=== PATIENT | female | born 1940 | race Caucasian/White ===

== ENCOUNTER → 2017-11-08 09:49 | Outpatient (CLI) | payer MEDICARE, SELFPAY ==
--- NOTE | 2017-11-08 09:54 | MM_ITS ---
MM Dig screening mamm BI w/CAD CAD Screening ORDERING PHYSICIAN : Bernarda Cobb PATIENT AGE: 77 years GENDER: Female COMPARISON: Previous mammograms: November 2010.. And December 2011 INDICATION: Routine screening 77-year-old. No hormones. No new complaints. Nonobstructive. Family history TECHNIQUE: Standard CC and MLO images were obtained. R2 CAD reviewed. FINDINGS: Moderate density breast RIGHT BREAST:Stable appearance LEFT BREAST:No significant new findings . Stable appearance of slight nodularity towards upper outer quadrant, actually less evident today than on previous studies. IMPRESSION: Stable bilateral mammogram with no dominant mass or suspicious calcification BI-RADS Category: 2 Benign Finding(s) RECOMMENDED FOLLOW-UP: 1YR - 1 YEAR FOLLOW-UP (A letter has been sent to the patient regarding results of the study.)
== END ==
PROVIDERS: Family Provider Nurse Practitioner Family; PCP Nurse Practitioner Family; Visit Provider Nurse Practitioner Family
DX: Z12.31 Encounter for screening mammogram for malignant neoplasm of breast (principal)
CPT/HCPCS: 77067

== ENCOUNTER → 2018-03-30 08:53 | Outpatient (CLI) | payer MEDICARE, SELFPAY ==
[2018-03-30 10:47] LABS: Alanine Aminotransferase 23 U/L (12-78); Albumin Level 3.8 gm/dL (3.4-5.0); Albumin/Globulin Ratio 1.1 (1.1-1.8); Alkaline Phosphatase 70 U/L (46-116); Anion Gap 12.4 mEq/L (5-15); Aspartate Amino Transferase 17 U/L (15-37); Bilirubin,Total 0.5 mg/dL (0.2-1.0); Blood Urea Nitrogen 20 mg/dL (7-18); Calcium 9.4 mg/dL (8.5-10.1); Carbon Dioxide 29 mmol/L (21.0-32.0); Chloride 106 mmol/L (98-107); Cholesterol 219 mg/dL (140-200); Creatinine,Serum 0.93 mg/dL (0.55-1.02); Estimated Glomerular Filt Rate 58 ml/min (>60); GFR (African American) 71 ML/MIN (>60); Globulin 3.4 gm/dl (1.3-3.2); Glucose 88 mg/dL (74-106); HDL Cholesterol 55 mg/dL (29-89); LDL Cholesterol 146 mg/dL (0-130); Potassium 4.4 mmoL/L (3.5-5.1); Sodium 143 mmol/L (136-145); Total Protein,Serum 7.2 gm/dL (6.4-8.2); Triglycerides 90 mg/dL (30-200); VLDL Cholesterol 18 mg/dL (0-40)
== END ==
PROVIDERS: Visit Provider Nurse Practitioner Family
DX: E78.2 Mixed hyperlipidemia (principal)
CPT/HCPCS: 36415; 80053; 80061

== ENCOUNTER → 2021-03-08 13:20 | Outpatient (CLI) | payer MEDICARE, SELFPAY ==
[2021-03-08 13:54] LABS: Basophils % 0.9 % (0.1-2.0); Eosinophils % 0.6 % (0.1-12.0); Hematocrit 38.5 % (37.0-47.0); Hemoglobin 12.9 g/dL (12.2-16.2); Lymphocytes # 1.7 K/mm3 (0.7-4.5); Lymphocytes % 38.1 % (10-50); Mean Corpuscular HGB Conc 33.5 g/dL (31.8-35.4); Mean Corpuscular Hemoglobin 29.8 pg (27.0-31.2); Mean Corpuscular Volume 89.1 fl (81-99); Mean Platelet Volume 9.1 fl (7.4-10.4); Monocytes # 0.2 K/mm3 (0.1-1.0); Monocytes % 4.7 % (1.7-9.3); Neutrophils # 2.4 K/mm3 (1.8-7.8); Neutrophils % 55.6 % (37.0-80.0); Platelet Count 231 K/mm3 (142-424); Red Blood Count 4.33 M/mm3 (4.20-5.40); Red Cell Distribution Width 16.8 % (11.5-17.5); White Blood Count 4.3 K/mm3 (4.8-10.8)
[2021-03-08 15:19] LABS: Alanine Aminotransferase 17 U/L (12-78); Albumin Level 4.7 g/dl (3.5-5.0); Albumin/Globulin Ratio 1.5 (1.1-1.8); Alkaline Phosphatase 69 U/L (38-126); Anion Gap 11.5 mEq/L (5-15); Aspartate Amino Transferase 32 U/L (14-36); Bilirubin,Total 0.7 mg/dl (0.2-1.3); Blood Urea Nitrogen 13 mg/dl (7-17); Calcium 9.3 mg/dl (8.4-10.2); Carbon Dioxide 29 mmol/L (22.0-30.0); Chloride 105 mmol/L (98-107); Chol/HDL Ratio 3.5 (1-3.5); Cholesterol 190 mg/dl (140-200); Estimated Glomerular Filt Rate 69 ml/min (>60); GFR (African American) 83 ML/MIN (>60); Globulin 3.2 g/dL (1.3-3.2); Glucose 94 mg/dl (74-100); HDL Cholesterol 55 mg/dl (40-60); Potassium 4.5 mmoL/L (3.5-5.1); Sodium 141 mmol/L (136-145); Total Protein,Serum 7.9 g/dl (6.3-8.2); Triglycerides 123 mg/dl (30-150); VLDL Cholesterol 25 mg/dL (0-40)
[2021-03-08 15:30] LABS: Direct LDL Cholesterol 99.04 mg/dL (100-129)
== END ==
PROVIDERS: Visit Provider Nurse Practitioner Family
DX: E78.5 Hyperlipidemia, unspecified (principal); K59.09 Other constipation
CPT/HCPCS: 36415; 80053; 80061; 85025

== ENCOUNTER → 2021-03-18 08:31 | Outpatient (CLI) | payer MEDICARE, SELFPAY ==
--- NOTE | 2021-03-18 08:36 | MM_ITS ---
PROCEDURE INFORMATION: Exam: Screening 3D Mammography Exam date and time: 03/18/2021 8:36 AM Age: 80 years old Clinical indication: Encounter for screening mammogram for malignant neoplasm of breast TECHNIQUE: Imaging protocol: Screening tomosynthesis and 2D mammography including computer-aided detection (CAD) when performed. COMPARISON: [facility] MM Dig screening mamm BI w/CAD 11/08/2017 10:11 AM FINDINGS: MAMMOGRAPHY: Breast composition: The breast tissue is composed of scattered areas of fibroglandular density. Mass: None. Architectural distortion: None. Calcifications: No suspicious calcifications. Asymmetric density: None. Skin thickening: None. Axillary adenopathy: None. IMPRESSION: No mammographic evidence of malignancy. Annual screening is recommended unless otherwise clinically indicated. ASSESSMENT: BI-RADS Category 1: Negative
--- NOTE | 2021-03-18 08:36 | XR_ITS ---
PROCEDURE: XR DEXA AXIAL SKELETON CLINICAL HISTORY: POST MENOPAUSAL COMPARISON: No exams were available for comparison FINDINGS: The right hip BMD is 0.751 with a T-score of -0.9. The left hip BMD is 0.767 with a T-score of -0.7. The lumbar spine BMD is 0.961 with a T-score of -0.8. IMPRESSION: This patient is considered normal according to the World Health Organization criteria. Fracture risk is low. Based on these results a follow-up exam is recommended in 2 year. Dictated by: Azar Cullen MD 03/18/2021 10:13 Azar Cullen MD in [place] 03/18/2021 10:13
== END ==
PROVIDERS: PCP Nurse Practitioner Family; Visit Provider Nurse Practitioner Family
DX: Z12.31 Encounter for screening mammogram for malignant neoplasm of breast (principal); Z78.0 Asymptomatic menopausal state
CPT/HCPCS: 77063; 77067; 77080

== ENCOUNTER → 2021-10-07 11:39 | Outpatient (CLI) | payer MEDICARE, SELFPAY ==
[2021-10-07 12:35] LABS: Hematocrit 39.6 % (37.0-47.0); Hemoglobin 12.6 g/dL (12.2-16.2); Lymphocytes # 1.6 K/mm3 (0.7-4.5); Lymphocytes % 41.7 % (10-50); Mean Corpuscular HGB Conc 31.9 g/dL (31.8-35.4); Mean Corpuscular Hemoglobin 29.6 pg (27.0-31.2); Mean Corpuscular Volume 92.7 fl (81-99); Mean Platelet Volume 8.9 fl (7.4-10.4); Monocytes # 0.2 K/mm3 (0.1-1.0); Monocytes % 4.8 % (1.7-9.3); Neutrophils # 1.9 K/mm3 (1.8-7.8); Neutrophils % 51.5 % (37.0-80.0); Platelet Count 309 K/mm3 (142-424); Red Blood Count 4.27 M/mm3 (4.20-5.40); Red Cell Distribution Width 18.3 % (11.5-17.5); White Blood Count 3.7 K/mm3 (4.8-10.8)
[2021-10-07 14:41] LABS: Vitamin B12 934 pg/mL (239-931)
[2021-10-07 23:34] LABS: Hemoglobin A1C 5.4 % (4.0-6.0)
== END ==
PROVIDERS: Visit Provider Nurse Practitioner Family
DX: R20.2 Paresthesia of skin (principal); Z79.899 Other long term (current) drug therapy
CPT/HCPCS: 36415; 82607; 82746; 83036; 84443; 85025

== ENCOUNTER 2023-09-22 06:21 | Day surgery (SDC) | payer MEDICARE, SELFPAY ==
[2023-09-20 12:55] VITALS: BMI 20.9
--- NOTE | 2023-09-22 06:53 | EXP.GEN.HP ---
HPI HPI HPI: Patient is an 82-year-old female. I had seen her about 7 years ago as a referral for hemorrhoids. Patient has a very longstanding history of constipation. She had undergone colonoscopy in November [address] Vineet Lama for evaluation of hemorrhoids at which time she had a tubular adenoma. I performed colonoscopy in October 2016 and she was found to have at least a couple of tubular adenomas, internal hemorrhoids, and a linear scarring in the left colon. It was felt that given her significant constipation that PPH hemorrhoid stapling would result in suboptimal outcome. Patient was due for a colonoscopy in October 2021. I had last seen her in the office plan was made to proceed with colonoscopy with consideration of possible hemorrhoid surgery although it was felt that she may have suboptimal outcome given her constipation symptoms. She describes symptoms of hemorrhoid prolapse. She does not have significant bleeding or pain. She does have problems with constipation most of her life according to her. She is on MiraLAX and Senokot. [facility] Disclaimer: The information contained in this section may have been updated after the patient was seen, as this information can be updated by other users. Medical History (Updated 09/22/23 @ 06:54 by Horace Jackson MD) No significant past medical history Surgical History History of colonoscopy Family History (Updated 09/20/23 @ 12:55 by Willie Fried RN) Family history of heart disease Family history of diabetes mellitus Social History (Updated 09/20/23 @ 12:52 by Willie Fried RN) Smoking Status: Never smoker alcohol intake: never substance use type: denies use current occupational status: retired Travel in the last 8 weeks: None Review of Systems Review of Systems Review of systems:: pertinent systems reviewed and negative unless documented below Meds Home Medications and Allergies Home Medications Medication Instructions Recorded Confirmed Type polyethylene glycol 3350 17 17 g PO DAILY 09/13/21 06/29/23 History gram/dose oral powder (Miralax) sod picosulf 10 mg-magnes 3.5 175 ml PO DAILY 2 doses #350 mL 09/15/23 09/15/23 Rx gram-citric 12 gram/160 mL oral solution (Clenpiq) acetaminophen 500 mg tablet 500 mg PO DAILY 09/22/23 09/22/23 History ascorbic acid (vitamin C) 500 mg 500 mg PO DAILY 09/22/23 09/22/23 History tablet (Vitamin C) calcium carbonate 600 mg-vitamin 1 tab PO DAILY 09/22/23 09/22/23 History D3 5 mcg (200 unit) tablet cholecalciferol (vitamin D3) 50 50 mcg PO DAILY 09/22/23 09/22/23 History mcg (2,000 unit) capsule (Vitamin D3) polyethylene glycol 3350 17 17 g PO DAILY 09/22/23 09/22/23 History gram/dose oral powder (Miralax) sennosides 8.6 mg tablet 8.6 mg PO DAILY 09/22/23 09/22/23 History (Vegetable Laxative) New Prescriptions to Start Prescriptions: sod picosulf 10 mg-magnes 3.5 gram-citric 12 gram/160 mL oral solution Allergies Allergy/AdvReac Type Severity Reaction Status Date / Time Penicillins Allergy Unknown Verified 09/22/23 06:57 Exam Data for Last 24 hours I & O for Last 24 hours: Intake & Output 09/19/23 09/20/23 09/21/23 09/22/23 11:59 11:59 11:59 11:59 Weight 130 lb Constitutional Constitutional: no acute distress *Routine HEENT Exam Head: Present normocephalic Eye: Present EOMI and PERRL ENT: Present mucous membranes moist *Routine Neck Exam Neck: Present supple; Absent lymphadenopathy *Routine Respiratory Exam Respiratory: Present CTA bilaterally *Routine Cardiovascular Exam Cardiovascular: Present RRR *Routine Abdominal Exam Abdominal: Present soft and normoactive bowel sounds; Absent tenderness *Routine Rectal Exam Rectal:: deferred *Routine Genitalia Exam Genitalia:: deferred *Routine Extremities Exam Extremities: Absent cyanosis, clubbing or edema *Routine Skin Exam Skin: Prese
[2023-09-22 06:57] VITALS: BP 155/62; PULSE 71; RESP 18; TEMP 36.4; O2SAT 98
[2023-09-22 07:31] VITALS: O2SAT 98
--- NOTE | 2023-09-22 07:53 | P.PNANES_ITS ---
[facility] Disclaimer: The information contained in this section may have been updated after the patient was seen, as this information can be updated by other users. Medical History No significant past medical history Surgical History History of colonoscopy Family History Other Family history of diabetes mellitus Family history of heart disease Social History Smoking Status: Never smoker alcohol intake: never substance use type: denies use current occupational status: retired Travel in the last 8 weeks: None caffeine: No [facility] Anesthesia Checklist Patient Identification Patient Identification: Arm Band Structural Data Admitted From: Home Planned Operative Procedure/s: colonoscopy Consent for Planned Operative Procedure(s) Verified: Yes Verified Documents: Surgical Consent and History and Physical NPO Status Verified Time NPO: 00:00 Additional verifications Anesthesia Reactions: No Airway Assessment Mallampati Score:: Class II C-Spine Mobility Assessed: Yes TMJ Mobility Assessed: Yes Dentition: Good Dentition Neurological Assessment Level of Consciousness: Awake and Alert Anesthesia Plan Anesthesia Risk discussed: Yes Anesthesia Plan: Verified ASA Class: II Anesthesia Type: MAC
[2023-09-22 08:30] VITALS: BP 120/62; PULSE 64; RESP 15; TEMP 36.1; O2SAT 96
--- NOTE | 2023-09-22 08:34 | HMH.SCOPE ---
Procedure: Date: 09/22/23 Patient Date of :: 1940 Procedure Performed:: Total colonoscopy to terminal ileum with numerous polypectomy using cold snare and cold biopsy and hemorrhoid banding x 2 Indications:: Patient is an 82-year-old female. I had seen her about 7 years ago as a referral for hemorrhoids. Patient has a very longstanding history of constipation. She had undergone colonoscopy in November [address] Vineet Lama for evaluation of hemorrhoids at which time she had a tubular adenoma. I performed colonoscopy in October 2016 and she was found to have at least a couple of tubular adenomas, internal hemorrhoids, and a linear scarring in the left colon. It was felt that given her significant constipation that PPH hemorrhoid stapling would result in suboptimal outcome. Patient was due for a colonoscopy in October 2021. I had last seen her in the office plan was made to proceed with colonoscopy with consideration of possible hemorrhoid surgery although it was felt that she may have suboptimal outcome given her constipation symptoms. She describes symptoms of hemorrhoid prolapse. She does not have significant bleeding or pain. She does have problems with constipation most of her life according to her. She is on MiraLAX and Senokot. Performing Provider:: Horace Jackson MD Referring Provider:: Jasmine Kovacs Sedation:: MAC sedation Procedure:: Patient history was obtained and appropriate physical examination was performed. Patient's medications and allergies were reviewed. Informed consent was obtained after explaining the benefits, alternatives, and risks of the procedure including, but not limited to, bleeding, perforation, missed lesions, and adverse reaction to anesthesia medications. Patient was transported to endoscopy procedure room. Patient was connected to monitoring devices. Throughout the procedure the patient's blood pressure, pulse, and oxygen saturations were monitored continuously. Patient identification and planned procedure were verified by the staff. Patient was positioned in lateral decubitus position. Digital anorectal exam was performed. Variable stiffness Olympus colonoscope was inserted and advanced under direct visualization to the cecum. Adequacy of the colonic preparation was noted. The colonoscope was advanced a short distance into the terminal ileum. The colonoscope was then slowly withdrawn while carefully examining the color, texture, anatomy, and integrity of the mucosoa circumferentially. Within the rectum retroflexion was performed. Colonoscope was then withdrawn. . Terminal ileum appeared normal. Throughout the colon she was found to have profound melanosis coli. In the cecum there were numerous adenomatous appearing polyps. 4 of these were removed with cold snare. 4 were removed with biopsy forceps. 1 was removed with snare followed by biopsy forceps. Some of these were near the appendiceal orifice and proximal to the ileocecal valve which made visualization somewhat difficult. In the ascending colon there is a moderate adenomatous appearing polyp removed with cold snare. At the hepatic flexure there were a couple of small adenomatous polyps removed with cold snare. In the rectum retroflexion revealed nearly circumferential prolapsing internal hemorrhoids. There were a couple of more prominent piles of hemorrhoids. The colonoscope was replaced with the endoscope and the super 7 banding device was attached. This was inserted into the rectum and retroflexion was performed. 2 adjacent hemorrhoid piles were banded with 2 bands each. The endoscope was then withdrawn. . . Findings:: Profound melanosis coli At least 9 adenomatous polyps in the cecum some of which were virtually within the appendiceal orifice and proximal to the ileocecal valve Ascending colon adenomatous polyp A couple of polyps at the hepatic flexure Nearly circumferential internal hemorrhoids, banded x 2 Jerman
[2023-09-22 08:40] VITALS: BP 126/56; PULSE 64; RESP 17; O2SAT 96
[2023-09-22 08:50] VITALS: BP 125/61; PULSE 59; RESP 16; O2SAT 97
[2023-09-22 09:00] VITALS: BP 128/60; PULSE 59; RESP 17; O2SAT 98
== END 2023-09-22 09:10 | disposition home or self-care (01) ==
PROVIDERS: PCP Nurse Practitioner Family; Visit Provider Surgery
PROC: 0DJD8ZZ Inspection of Lower Intestinal Tract, Via Natural or Artificial Opening Endoscopic (ICD-10-PCS; CPT 45380; principal; 2023-09-22 07:30)
DX: K64.8 Other hemorrhoids (principal); D12.6 Benign neoplasm of colon, unspecified; K59.09 Other constipation; K63.89 Other specified diseases of intestine; D12.0 Benign neoplasm of cecum; D12.2 Benign neoplasm of ascending colon; D12.3 Benign neoplasm of transverse colon
CPT/HCPCS: 45380; 45385; J2704

== ENCOUNTER 2023-10-24 07:32 | Day surgery (SDC) | payer MEDICARE, SELFPAY ==
[2023-10-19 16:29] VITALS: BMI 20.3
[2023-10-24] VITALS (7 sets, daily range): BP systolic 136–179; BP diastolic 65–79; PULSE 56–72; RESP 16–18; TEMP 36.1–36.4; O2SAT 99–100
[2023-10-24] MEDS: CYCLOPENTOLATE 2% OPHTH SOLN 2ML BOTTLE OP ×3 (08:00→08:10)
[2023-10-24] MEDS: TETRACAINE 0.5% OPTH SOL 15ML OP ×3 (08:00→08:10)
[2023-10-24] MEDS: PHENYLEPHRINE 2.5% OPHTH SOLN 2ML 0.0500000000000000028 ML OP ×3 (08:00→08:10)
[2023-10-24] MEDS: SODIUM CHLORIDE 0.9% 10ML FLUSH SYRINGE 10 ML IV (09:21)
[2023-10-24] MEDS: MIDAZOLAM 2MG/2ML VIAL 1 MG IV (09:21)
[2023-10-24] MEDS: LIDOCAINE 1% PF 2ML AMPULE 2 ML IJ (09:28)
[2023-10-24] MEDS: TIMOLOL 0.5% OPTH SOLN 5ML OP (09:30)
[2023-10-24] MEDS: TRI-MOXI 15MG/1MG/ML 1ML OPHTH VIAL 1 ML OP (09:31)
== END 2023-10-24 10:00 | disposition home or self-care (01) ==
PROVIDERS: PCP Nurse Practitioner Family; Visit Provider Ophthalmology
PROC: (CPT 66984; principal; 2023-10-24 09:30)
DX: H25.811 Combined forms of age-related cataract, right eye (principal)
CPT/HCPCS: 66984; V2632

== ENCOUNTER 2023-11-07 07:33 | Day surgery (SDC) | payer MEDICARE, SELFPAY ==
[2023-11-02 09:55] VITALS: BMI 20.6
[2023-11-07] MEDS: CYCLOPENTOLATE 2% OPHTH SOLN 2ML BOTTLE OP ×3 (08:20→08:30)
[2023-11-07] MEDS: TETRACAINE 0.5% OPTH SOL 15ML OP ×3 (08:20→08:30)
[2023-11-07] MEDS: PHENYLEPHRINE 2.5% OPHTH SOLN 2ML 0.0500000000000000028 ML OP ×3 (08:20→08:30)
[2023-11-07 08:23] VITALS: BP 153/81; PULSE 66; RESP 16; TEMP 36.4; O2SAT 100
[2023-11-07 09:02] VITALS: BP 193/81; PULSE 64; RESP 17; O2SAT 98
[2023-11-07] MEDS: MIDAZOLAM 2MG/2ML VIAL 1 MG IV (09:02)
[2023-11-07 09:07] VITALS: BP 174/75; PULSE 66; RESP 17; O2SAT 96
[2023-11-07] MEDS: TIMOLOL 0.5% OPTH SOLN 5ML OP (09:09)
[2023-11-07] MEDS: LIDOCAINE 1% PF 2ML AMPULE 2 ML IJ (09:10)
[2023-11-07] MEDS: TRI-MOXI 15MG/1MG/ML 1ML OPHTH VIAL 1 ML OP (09:10)
[2023-11-07 09:12] VITALS: BP 166/71; PULSE 63; RESP 17; O2SAT 96
[2023-11-07 09:17] VITALS: BP 169/72; PULSE 61; RESP 16; O2SAT 96
[2023-11-07 09:20] VITALS: BP 148/72; PULSE 61; RESP 16; TEMP 36.4; O2SAT 99
== END 2023-11-07 09:32 | disposition home or self-care (01) ==
PROVIDERS: PCP Nurse Practitioner Family; Visit Provider Ophthalmology
PROC: (CPT 66984; principal; 2023-11-07 09:30)
DX: H25.812 Combined forms of age-related cataract, left eye (principal)
CPT/HCPCS: 66984; V2632

== ENCOUNTER 2024-08-21 12:24 | Day surgery (SDC) | payer MEDICARE, SELFPAY ==
[2024-08-21] MEDS: 0.9 % SODIUM CHLORIDE 1000ML 1,000 ML 25 ML IV (12:56)
[2024-08-21 13:10] VITALS: BP 154/61; PULSE 79; RESP 18; TEMP 36.3; O2SAT 96; BMI 22.9
--- NOTE | 2024-08-21 13:57 | P.HP_ITS ---
History of Present Illness *Admission Date: 08/21/24 *Reason for visit:: Surveillance secondary to multiple adenomatous colon polyps *History of present illness: Mrs. Garcia is an 83-year-old female who is here for surveillance colonoscopy secondary to multiple adenomatous colon polyps identified at the time of her colonoscopy in September 2023. Dr. Horace Jackson who performed the procedure recommended repeat surveillance at 6 to 12-month interval.. The examination is deemed medically necessary for surveillance colonoscopy. The patient has been seen, interviewed and examined prior to the procedure by both myself and the anesthesia provider. [facility] Disclaimer: The information contained in this section may have been updated after the patient was seen, as this information can be updated by other users. Medical History No significant past medical history Surgical History History of cataract surgery History of colonoscopy Family History Other Family history of diabetes mellitus Family history of heart disease Social History Smoking Status: Never smoker alcohol intake: never substance use type: denies use current occupational status: retired Travel in the last 8 weeks: None caffeine: No Other Medical History Have you received the Pneumonia Vaccine: No Review of Systems Review of Systems Review of systems (narrative): Negative *Cardiovascular Comments: Negative *Gastrointestinal Comments: Negative *Genitourinary Comments: Negative *Musculoskeletal Comments: Negative *Neurologic Comments: Negative Meds Home Medications and Allergies Home Medications ?Medication ?Instructions ?Recorded ?Confirmed ?Type acetaminophen 500 mg tablet 500 mg PO DAILY 09/22/23 08/21/24 History ascorbic acid (vitamin C) 500 mg 500 mg PO DAILY 09/22/23 08/21/24 History tablet (Vitamin C) calcium 600 mg (as 1 tab PO DAILY 09/22/23 08/21/24 History carbonate)-vitamin D3 5 mcg (200 unit) tablet cholecalciferol (vitamin D3) 50 50 mcg PO DAILY 09/22/23 08/21/24 History mcg (2,000 unit) capsule (Vitamin D3) polyethylene glycol 3350 17 17 g PO DAILY 09/22/23 08/21/24 History gram/dose oral powder (Miralax) sennosides 8.6 mg tablet 8.6 mg PO DAILY 09/22/23 08/21/24 History (Vegetable Laxative) sodium,potassium,mag sulfates 17.5 See Rx Instructions PO .COMPLEX 08/12/24 08/21/24 Rx gram-3.13 gram-1.6 gram oral soln #354 mL (Suprep Bowel Prep Kit) acetaminophen 325 mg tablet 325 mg PO QID 08/21/24 08/21/24 History (Tylenol) ascorbic acid (vitamin C) 25 mg 25 mg PO DAILY 08/21/24 08/21/24 History tablet calcium 600 mg capsule 600 mg PO DAILY 08/21/24 08/21/24 History cholecalciferol (vitamin D3) 50 50 mcg PO DAILY 08/21/24 08/21/24 History mcg (2,000 unit) capsule (Vitamin D3) magnesium 1 tab PO DAILY 08/21/24 08/21/24 History psyllium 1 packet PO TID 08/21/24 08/21/24 History New Prescriptions to Start Prescriptions: Allergies Allergy/AdvReac Type Severity Reaction Status Date / Time Penicillins Allergy Unknown Other Verified 08/21/24 13:09 Exam *Routine HEENT Exam Head: Present normocephalic Eye: Present EOMI and PERRL ENT: Present mucous membranes moist *Routine Neck Exam Neck: Present supple *Routine Respiratory Exam Respiratory: Present CTA bilaterally *Routine Cardiovascular Exam Cardiovascular: Present RRR *Routine Abdominal Exam Abdominal: Present soft and normoactive bowel sounds; Absent tenderness *Routine Rectal Exam Rectal:: deferred *Routine Genitalia Exam Genitalia:: deferred *Routine Extremities Exam Extremities: Absent cyanosis, clubbing or edema *Routine Skin Exam Skin: Present warm; Absent rash *Routine Neurological Exam Neurological: Present alert and oriented X3 Assessment and Plan *Assessment and plan (1) Personal history of adenomatous and serrated colon polyps: Status: Acute Category: Medical Code(s): Z86.0101 - Personal history of adenomatous and serrated colon polyps Plan A/P: 1. Personal history of multiple advanced adenomatous polyps is the preprocedural diagnosis. The patient will be anesthetized/sedated using MAC sedation. The patient has been seen and examined. Cardiac and lung assessment prior to the examination is stable. Proceed with planned colonoscopy
--- NOTE | 2024-08-21 14:02 | P.PNANES_ITS ---
[facility] Disclaimer: The information contained in this section may have been updated after the patient was seen, as this information can be updated by other users. Medical History No significant past medical history Surgical History History of cataract surgery History of colonoscopy Family History Other Family history of diabetes mellitus Family history of heart disease Social History Smoking Status: Never smoker alcohol intake: never substance use type: denies use current occupational status: retired Travel in the last 8 weeks: None caffeine: No [facility] Anesthesia Checklist Patient Identification Patient Identification: Arm Band and Family Structural Data Admitted From: Home Planned Operative Procedure/s: Colonoscopy Consent for Planned Operative Procedure(s) Verified: Yes Verified Documents: History and Physical NPO Status Verified Time NPO: 00:00 Additional verifications Patient : No Anesthesia Reactions: No Hx Blood Transfusions: No Blood Transfusion Reaction: No Cephalosporin Allergy: Yes Previous Colonoscopy: Yes Airway Assessment Mallampati Score:: Class II C-Spine Mobility Assessed: Yes TMJ Mobility Assessed: Yes Dentition: Good Dentition Neurological Assessment Level of Consciousness: Awake, Alert, Appropriate and Follows Commands Hx Seizures: No Numbness or tingling in extremities: No Anesthesia Plan Anesthesia Risk discussed: Yes ASA Class: II Anesthesia Type: MAC Preoperative Comments Pre-Operative Comments: Advanced age. UTI. IBS diagnosed 2013.
--- NOTE | 2024-08-21 14:08 | P.HP_ITS ---
History of Present Illness *Admission Date: 08/21/24 *Reason for visit:: Surveillance *History of present illness: Mrs. Garcia is an 83-year-old female who is here for surveillance colonoscopy secondary to multiple adenomatous colon polyps identified at the time of her colonoscopy in September 2023. Dr. Horace Jackson who performed the procedure recommended repeat surveillance at 6 to 12-month interval.. The examination is deemed medically necessary for surveillance colonoscopy. The patient has been seen, interviewed and examined prior to the procedure by both myself and the anesthesia provider. [facility] Disclaimer: The information contained in this section may have been updated after the patient was seen, as this information can be updated by other users. Medical History No significant past medical history Surgical History History of cataract surgery History of colonoscopy Family History Other Family history of diabetes mellitus Family history of heart disease Social History Smoking Status: Never smoker alcohol intake: never substance use type: denies use current occupational status: retired Travel in the last 8 weeks: None caffeine: No Other Medical History Have you received the Pneumonia Vaccine: No Review of Systems Review of Systems Review of systems (narrative): Negative *Cardiovascular Comments: Negative *Gastrointestinal Comments: Negative *Genitourinary Comments: Negative *Musculoskeletal Comments: Negative *Neurologic Comments: Negative Meds Home Medications and Allergies Home Medications ?Medication ?Instructions ?Recorded ?Confirmed ?Type acetaminophen 500 mg tablet 500 mg PO DAILY 09/22/23 08/21/24 History ascorbic acid (vitamin C) 500 mg 500 mg PO DAILY 09/22/23 08/21/24 History tablet (Vitamin C) calcium 600 mg (as 1 tab PO DAILY 09/22/23 08/21/24 History carbonate)-vitamin D3 5 mcg (200 unit) tablet cholecalciferol (vitamin D3) 50 50 mcg PO DAILY 09/22/23 08/21/24 History mcg (2,000 unit) capsule (Vitamin D3) polyethylene glycol 3350 17 17 g PO DAILY 09/22/23 08/21/24 History gram/dose oral powder (Miralax) sennosides 8.6 mg tablet 8.6 mg PO DAILY 09/22/23 08/21/24 History (Vegetable Laxative) sodium,potassium,mag sulfates 17.5 See Rx Instructions PO .COMPLEX 08/12/24 08/21/24 Rx gram-3.13 gram-1.6 gram oral soln #354 mL (Suprep Bowel Prep Kit) acetaminophen 325 mg tablet 325 mg PO QID 08/21/24 08/21/24 History (Tylenol) ascorbic acid (vitamin C) 25 mg 25 mg PO DAILY 08/21/24 08/21/24 History tablet calcium 600 mg capsule 600 mg PO DAILY 08/21/24 08/21/24 History cholecalciferol (vitamin D3) 50 50 mcg PO DAILY 08/21/24 08/21/24 History mcg (2,000 unit) capsule (Vitamin D3) magnesium 1 tab PO DAILY 08/21/24 08/21/24 History psyllium 1 packet PO TID 08/21/24 08/21/24 History New Prescriptions to Start Prescriptions: Allergies Allergy/AdvReac Type Severity Reaction Status Date / Time Penicillins Allergy Unknown Other Verified 08/21/24 13:09 Exam Data for Last 24 hours Vital signs and Labs for Last 24 Hours: Temp Pulse Resp BP Pulse Ox O2 Del Method 97.4 F L 79 18 154/61 H 96 Room Air 08/21/24 13:10 08/21/24 13:10 08/21/24 13:10 08/21/24 13:10 08/21/24 13:10 08/21/24 13:10 I & O for Last 24 hours: Intake & Output 08/18/24 08/19/24 08/20/24 08/21/24 22:59 23:59 23:59 23:59 Weight 138 lb *Routine HEENT Exam Head: Present normocephalic Eye: Present EOMI and PERRL ENT: Present mucous membranes moist *Routine Neck Exam Neck: Present supple *Routine Respiratory Exam Respiratory: Present CTA bilaterally *Routine Cardiovascular Exam Cardiovascular: Present RRR *Routine Abdominal Exam Abdominal: Present soft and normoactive bowel sounds; Absent tenderness *Routine Rectal Exam Rectal:: deferred *Routine Genitalia Exam Genitalia:: deferred *Routine Extremities Exam Extremities: Absent cyanosis, clubbing or edema *Routine Skin Exam Skin: Present warm; Absent rash *Routine Neurological Exam Neurological: Present alert and oriented X3 Assessment and Plan *Assessment and plan (1) Personal history of adenomatous and serrated colon polyps: Status: Acute Category: Medical Code(s): Z86.0101 - Personal history of adenomatous and serrated colon polyps Plan A/P: 1. Personal history of multiple adenomatous colon polyps is the preprocedural diagnosis. The patient will be anesthetized/sedated using MAC sedation. The patient has been seen and examined. Cardiac and lung assessment prior to the examination is stable. Proceed with planned colonoscopy
--- NOTE | 2024-08-21 14:09 | [facility].PROCNOTE ---
[facility] Procedure Note Date: 08/21/24 Time: 14:29 Procedure Note:: Colonoscopy Procedure Report: Colonoscopy with cold snare polypectomy Endoscopist: Wilian Jacques II, MD Referring physician: KIMBERLY Zuñiga Date of Procedure: August 21, 2024 Equipment: Olympus 190 variable stiffness pediatric colonoscope Sedation: MAC sedation Indication: Mrs. Garcia is an 83-year-old female who is here for surveillance colonoscopy secondary to multiple adenomatous colon polyps identified at the time of her colonoscopy in September 2023. The patient had 12 polyps at that time removed which were all adenomatous. The patient has had constipation since childhood. She has used multiple piio-equ-yvpqxge laxatives including milk of magnesia, MiraLAX, stimulant laxatives, fiber and previously Linzess. More recently she has been on MiraLAX daily plus increasing doses of Senokot. She does get some left lower quadrant abdominal discomfort. She reports no rectal bleeding, weight loss or family history of colon cancer. Procedure: Prior to the procedure, a history and physical exam was performed, and patient's medications and allergies were reviewed. The risks, benefits and alternatives of the sedation and procedure were discussed with the patient. All questions were answered and informed consent was obtained. The patient was brought to the procedure room. Patient identification and proposed procedure were verified by the physician and the nurse. The patient was placed in a left lateral decubitus position and the scope was passed under direct vision. Throughout the procedure, the patient's blood pressure, pulse, and oxygen saturations were monitored continuously. The colonoscopy was accomplished without difficulty. The patient tolerated the procedure well. Findings: On digital rectal examination there was normal rectal tone. There were no external hemorrhoids. The colonoscope was introduced through the anal canal to the rectum and advanced to the cecum. The ileocecal valve and appendiceal orifice were identified. The scope was advanced a short distance into the ileum which appeared grossly normal. The scope was then withdrawn into the colon. There were 2 very small 2 and 3 mm polyps in the cecum removed via cold snare polypectomy. The remaining cecum, ascending, transverse, descending, sigmoid and rectum were grossly normal. There was melanosis coli noted throughout the colon more predominantly in the right colon. There were no other mucosal abnormalities identified. Upon retroflexion within the rectum there were grade 2 internal hemorrhoids.there was some mucosal fibrosis at the pectinate line from prior hemorrhoid procedure. The preparation was excellent throughout with Bunn Preparation Score of 9. The cecal time was 10 minutes. Impression: 1. Diminutive cecal polyps x 2 (2 and 3 mm) 2. Moderate melanosis coli 3. Grade 2 internal hemorrhoids Plan: I will follow-up the polyp histology. Based upon her age, I do not feel that she will require any further surveillance colonoscopy. We will continue the regimen that works best for her constipation. 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 Slow transit constipation refers to slowed movement of contents through the digestive tract and this type of constipation responds very well to most laxatives. Outlet dysfunction, which makes up 50% of those with constipation, refers to an issue with the actual elimination mechanism of stool. The diagnosis of outlet dysfunction constipation is often made in those patients with constipation that respond poorly or not at all to standard laxatives such as osmotics (MiraLAX, Linzess, Trulance), fiber supplements, stimulant laxatives, diet and fluid intake. Up to 50% of patients with chronic constipation have pelvic floor dysfunction (PFD, or dyssynergia). This condition is characterized by impaired coordination between pelvic floor muscle (e.g., puborectalis) relaxation and weakness of the defecatory mechanism which is necessary for normal defecation and bowel evacuation. Defecatory function is a delicate balance between the nerves and muscles. The nerves that arise from the sacral spine are very closely tied to bowel/rectal evacuation. This sacral nervous system allows you to recognize when your rectum is full and allows you to correctly contract muscles to allow for your rectum to evacuate fully. When this balance is upset there is incorrect communication between the nervous system and defecatory muscles (i.e. neuromuscular). Unfortunately, pelvic floor dysfunction is not widely recognized as a possible cause of chronic constipation. As a result, many patients with medically refractory constipation do not receive optimal therapies that enable them to recover normal bowel habits. When mechanical, anatomic, and disease- and diet-related causes of constipation have been ruled out, clinical suspicion should be raised to the possibility that pelvic floor dysfunction is causing or contributing to constipation. The biggest mainstay of treatment for pelvic floor dysfunction includes retraining the pelvic floor muscles with biofeedback physical therapy. Most reviews conclude that more than 70% of adult patients complaining of pelvic floor dyssynergia are likely to benefit from biofeedback training (to completion) and so this is the treatment of choice for the problem. In some large tertiary centers of excellence (i.e. [facility] and [facility]), a larger array of additional diagnostic tests are performed included anorectal manometry and electromyography, barium defecography, water-filled balloon expulsion from the rectum and colonic transit studies with radiopaque markers are often utilized to assess severity. Most of this testing is not regionally available and most feel it is not feasible especially in the setting of failed agents and laxatives. I do feel that she may benefit from pelvic floor physical therapy.
[2024-08-21 14:11] VITALS: O2SAT 100
[2024-08-21 14:33] VITALS: BP 130/65; PULSE 72; RESP 18; TEMP 36.6; O2SAT 99
[2024-08-21 14:43] VITALS: BP 118/69; PULSE 80; RESP 18; O2SAT 100
[2024-08-21 14:53] VITALS: BP 134/75; PULSE 84; RESP 16; O2SAT 100
[2024-08-21 15:03] VITALS: BP 157/87; PULSE 82; RESP 18; O2SAT 99
== END 2024-08-21 15:04 | disposition home or self-care (01) ==
PROVIDERS: PCP Nurse Practitioner Family; Visit Provider Internal Medicine Gastroenterology
PROC: (CPT 45385; principal; 2024-08-21 14:00)
DX: Z86.0101 Personal history of adenomatous and serrated colon polyps (principal); K63.5 Polyp of colon; K63.89 Other specified diseases of intestine; K64.1 Second degree hemorrhoids
CPT/HCPCS: 45385; 88305; J7030

== ENCOUNTER 2025-04-04 10:20 | Outpatient (CLI) | payer MEDICARE, SELFPAY ==
--- OUTSIDE RECORDS SUMMARY | 2025-04-04 10:24 | XMS_ITS | Data Portability ---
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 -when we see her back we are going to do a PVR cath/exam. - has IBS with constipation. flare occuring at that time. suspect related to that and concern for bladder spasms or IC associated. -I suspect her trace hematuria on dip is likely related to vaginal atrophy but we will confirm with next exam. Not available 01/20/2023 15:12:10 02/01/2023 02/01/2023 -severe vaginal atrophy with urethral caruncle. -continue clobetasol and also start premarin VC. -fu for reassess in 6-8wks. Not available 02/01/2023 13:49:04 03/29/2023 03/29/2023 -severe vaginal atrophy with urethral caruncle. -continue clobetasol as rx. premarin rx but declined using currently. -fu PRN Not available 03/29/2023 14:31:28 Plan of Treatment Reminders Order Date Submit Date Provider Last Modified By Organization Details Last Modified Time Details Appointments None recorded. Lab urinalysis, dipstick 2022 023 [place] 3 [facility], [address] [place] [address], [address], 06/14/202 3 14:30:34 urinalysis, dipstick 2022 023 [facility] 3 [facility], [address] [place], [address], 3 13:43:24 urinalysis, dipstick 2022 023 [facility] 3 [facility], [address] [place], [address], 3 15:09:27 urinalysis, complete 2022 023 ONO [facility], [address], [address], [place], [address], 3 06:43:12 culture, urine 2022 023 SHRUTHI [facility], [address], [place] [address], [place], [address], 3 06:43:14 Referral None recorded. Procedures None recorded. Surgeries None recorded. Imaging US, retroperito neum, complete - pre/pvr 2022 023 [facility], [address] [place], [place] [address], [place], [address], 3 16:19:28 Medication Orders Premarin 0.625 mg/gram vaginal cream 2022 023 [facility], [address] [place] [address], [address], 3 13:43:26 clobetasol 0.05 % topical ointment 2022 023 [facility], [address] [place] [address], [address], 3 13:49:59 Patient TargetsNo targets recorded. Patient Instructions Encounter Date Encounter Id Patient Instructions Last Modified By Organization Details Last Modified Time 03/29/2023 [id number] irritable bowel syndrome: care instructions Not available 03/29/2023 14:30:33 Reason for Referral None Reported. Results Created Date Observation Date Name Description Value Unit Range Abnormal Flag Note LastModifiedBy Organization Detail LastModifiedTime 01/21/2001/21/2023 URINA LYSIS , COMPL ETE specific gravity 1.006 1.005- 1.030 Not Available [facility] ([facility]) [address] [place], [address], 01/22/2023 06:43:12 01/21/2001/21/2023 URINA LYSIS , COMPL ETE pH 6.5 5.0-7. 5 Not Available [facility] ([facility]) [address] [place], [address], 01/22/2023 06:43:12 01/21/2001/21/2023 URINA LYSIS , COMPL ETE urine-color YELLOW yellow Not Available [facility] ([facility]) [address] [place], [address], 01/22/2023 06:43:12 01/21/2001/21/2023 URINA LYSIS , COMPL ETE appearance CLEAR clear Not Available [facility] ([facility]) [address] [place], [address], 01/22/2023 06:43:12 01/21/2001/21/2023 URINA LYSIS , COMPL ETE WBC esterase NEGATI VE negati ve Not Available [facility] ([facility]) [address] [place], [address], 01/22/2023 06:43:12 01/21/2001/21/2023 URINA LYSIS , COMPL ETE protein NEGATI VE negati ve/tra ce Not Available [facility] ([facility]) [address] [place], [address], 01/22/2023 06:43:12 01/21/20 23 01/21/2023 URINA LYSIS , COMPL ETE glucose NEGATI VE negati ve Not Available [facility] ([facility]) [address] [place], [address], 01/22/2023 06:43:12 01/21/20 23 01/21/2023 URINA LYSIS , COMPL ETE ketones NEGATI VE negati ve Not Available [facility] ([facility]) [address] [place], [address], 01/22/2023 06:43:12 01/21/2001/21/2023 URINA LYSIS , COMPL ETE occult blood NEGATI VE negati ve Not Available [facility] ([facility]) [address] [place], [address], 01/22/2023 06:43:12 01/21/20 23 01/21/2023 URINA LYSIS , COMPL ETE bilirubin NEGATI VE negati ve Not Available [facility] ([facility]) [address] [place], [address], 01/22/2023 06:43:12 01/21/2001/21/2023 URINA LYSIS , COMPL ETE urobilinogen ,semi-qn 0.2 mg/dL 0.2-1. 0 Not Available [facility] ([facility]) [address] [place], [address], 01/22/2023 06:43:12 01/21/2001/21/2023 URINA LYSIS , COMPL ETE nitrite, urine NEGATI VE negati ve Not Available [facility] ([facility]) [address] [place], [address], 01/22/2023 06:43:12 01/21/20 23 01/21/2023 URINA LYSIS , COMPL ETE microscopic examination COMMEN T Micro scopi c follo ws if indic ated. Not Available [facility] ([facility]) [address] [facility], [place], [address], 01/22/2023 06:43:12 01/21/20 23 01/21/2023 URINA LYSIS , COMPL ETE microscopic examination SEE BELOW: Micro scopi c was indic ated and was perfo rmed. Not Available [facility] ([facility]) [address] [facility], [place], [address], 01/22/2023 06:43:12 01/21/20 23 01/21/2023 URINA LYSIS , COMPL ETE WBC NONE SEEN /hpf 0 - 5 Not Available [facility] ([facility]) [address] [facility], [place], [address], 01/22/2023 06:43:12 01/21/20 23 01/21/2023 URINA LYSIS , COMPL ETE RBC NONE SEEN /hpf 0 - 2 Not Available [facility] ([facility]) [address] [facility], [place], [address], 01/22/2023 06:43:12 01/21/20 23 01/21/2023 URINA LYSIS , COMPL ETE epithelial cells (non renal) NONE SEEN /hpf 0 - 10 Not Available [facility] ([facility]) [address] [facility], [place], [address], 01/22/2023 06:43:12 01/21/20 23 01/21/2023 URINA LYSIS , COMPL ETE epithelial cells (renal) [employer] Not Available [facility] ([facility]) [address] [facility], [place], [address], 01/22/2023 06:43:12 01/21/20 23 01/21/2023 URINA LYSIS , COMPL ETE casts NONE SEEN /lpf none seen Not Available [facility] ([facility]) [address] [facility], [place], [address], 01/22/2023 06:43:12 01/21/20 23 01/21/2023 URINA LYSIS , COMPL ETE cast type [employer] Not Available [facility] ([facility]) [address] [facility], [place], [address], 01/22/2023 06:43:12 01/21/20 23 01/21/2023 URINA LYSIS , COMPL ETE crystals [employer] Not Available [facility] ([facility]) [address] [facility], [place], [address], 01/22/2023 06:43:12 01/21/20 23 01/21/2023 URINA LYSIS , COMPL ETE crystal type [employer]ER Not Available [facility] ([facility]) [address] [facility], [place], [address], 01/22/2023 06:43:12 01/21/20 23 01/21/2023 URINA LYSIS , COMPL ETE mucus threads [employer] Not Available [facility] ([facility]) [address] [facility], [place], [address], 01/22/2023 06:43:12 01/21/20 23 01/21/2023 URINA LYSIS , COMPL ETE bacteria NONE SEEN none seen/f ew Not Available [facility] ([facility]) [address] [facility], [place], [address], 01/22/2023 06:43:12 01/21/20 23 01/21/2023 URINA LYSIS , COMPL ETE yeast [employer] Not Available [facility] ([facility]) [address] [facility], [place], [address], 01/22/2023 06:43:12 01/21/20 23 01/21/2023 URINA LYSIS , COMPL ETE trichomonas [employer] Not Available [facility] ([facility]) [address] [facility], [place], [address], 01/22/2023 06:43:12 01/21/20 23 01/21/2023 URINA LYSIS , COMPL ETE comment [employer] Not Available [facility] ([facility]) [address] [facility], [place], [address], 01/22/2023 06:43:12 01/21/20 23 01/22/2023 URINE CULTU RE, ROUTI NE urine culture, routine FINAL REPORT Not Available [facility] ([facility]) [address] [facility], [place], [address], 01/22/2023 06:43:13 01/21/20 23 01/22/2023 URINE CULTU RE, ROUTI NE result 1 COMMEN T Cultu re shows less than 10,00 0 colon y formi ng units of bacte abraham per corona liter of urine . This colon y count is not gener ally consi dered to be clini verna signi fican t. Not Available [facility] ([facility]) [address] [facility], [place], [address], 01/22/2023 06:43:13 01/21/20 23 01/20/2023 urina lysis , dipst ick Leukocytes Negati ve Not Available [facility] [address] [place], [address], 01/20/2023 14:32:31 01/21/20 23 01/20/2023 urina lysis , dipst ick Nitrite negati ve Not Available [facility] [address] [place], [address], 01/20/2023 14:32:31 01/21/20 23 01/20/2023 urina lysis , dipst ick Urobilinogen .2 Not Available [facility] [address] [place], [address], 01/20/2023 14:32:31 01/21/20 23 01/20/2023 urina lysis , dipst ick Protein Negati ve Not Available [facility] [address] [place], [address], 01/20/2023 14:32:31 01/21/20 23 01/20/2023 urina lysis , dipst ick pH 6.0 Not Available [facility] [address] [place], [address], 01/20/2023 14:32:31 01/21/20 23 01/20/2023 urina lysis , dipst ick Blood Hemoly zed: Trace Not Available [facility] [address] [place], [address], 01/20/2023 14:32:31 01/21/20 23 01/20/2023 urina lysis , dipst ick Specific [place] 1.010 Not Available [facility] [address] [place], [address], 01/20/2023 14:32:31 01/21/20 23 01/20/2023 urina lysis , dipst ick Ketone Negati ve Not Available [facility] [address] [place], [address], 01/20/2023 14:32:31 01/21/20 23 01/20/2023 urina lysis , dipst ick Bilirubin Negati ve Not Available [facility] [address] [place], [address], 01/20/2023 14:32:31 01/21/20 23 01/20/2023 urina lysis , dipst ick Glucose Negati ve Not Available [facility] [address] [place], [address], 01/20/2023 14:32:31 01/21/20 23 01/20/2023 urina lysis , dipst ick Appearance Clear Not Available [facility] [address] [place], [address], 01/20/2023 14:32:31 01/21/20 23 01/20/2023 urina lysis , dipst ick Color Dark Yellow Not Available [facility] [address] [place], [address], 01/20/2023 14:32:31 02/02/20 23 02/01/2023 urina lysis , dipst ick Leukocytes Negati ve Not Available [facility] [address] [place], [address], 02/01/2023 13:05:01 02/02/20 23 02/01/2023 urina lysis , dipst ick Nitrite negati ve Not Available [facility] [address] [place], [address], 02/01/2023 13:05:01 02/02/20 23 02/01/2023 urina lysis , dipst ick Urobilinogen .2 Not Available [facility] [address] [place], [address], 02/01/2023 13:05:01 02/02/20 23 02/01/2023 urina lysis , dipst ick Protein Negati ve Not Available [facility] [address] [place], [address], 02/01/2023 13:05:01 02/02/20 23 02/01/2023 urina lysis , dipst ick pH 7.0 Not Available [facility] [address] [place], [address], 02/01/2023 13:05:01 02/02/20 23 02/01/2023 urina lysis , dipst ick Blood Negati ve Not Available [facility] [address] [place], [address], 02/01/2023 13:05:01 02/02/20 23 02/01/2023 urina lysis , dipst ick Specific [place] 1.015 Not Available [facility] [address] [place], [address], 02/01/2023 13:05:01 02/02/20 23 02/01/2023 urina lysis , dipst ick Ketone Negati ve Not Available [facility] [address] [place], [address], 02/01/2023 13:05:01 02/02/20 23 02/01/2023 urina lysis , dipst ick Bilirubin Negati ve Not Available [facility] [address] [place], [address], 02/01/2023 13:05:01 02/02/20 23 02/01/2023 urina lysis , dipst ick Glucose Negati ve Not Available [facility] [address] [place], [address], 02/01/2023 13:05:01 02/02/20 23 02/01/2023 urina lysis , dipst ick Appearance Clear Not Available [facility] [address] [place], [address], 02/01/2023 13:05:01 02/02/20 23 02/01/2023 urina lysis , dipst ick Color Dark Yellow Not Available [facility] [address] [place], [address], 02/01/2023 13:05:01 03/29/20 23 03/29/2023 urina lysis , dipst ick Leukocytes Negati ve Not Available [facility] [address] [place], [address], 03/29/2023 14:08:41 03/29/20 23 03/29/2023 urina lysis , dipst ick Nitrite negati ve Not Available [facility] [address] [place], [address], 03/29/2023 14:08:41 03/29/20 23 03/29/2023 urina lysis , dipst ick Urobilinogen .2 Not Available [facility] [address] [place], [address], 03/29/2023 14:08:41 03/29/20 23 03/29/2023 urina lysis , dipst ick Protein Negati ve Not Available [facility] [address] [place], [address], 03/29/2023 14:08:41 03/29/20 23 03/29/2023 urina lysis , dipst ick pH 6.0 Not Available [facility] [address] [place], [address], 03/29/2023 14:08:41 03/29/20 23 03/29/2023 urina lysis , dipst ick Blood Negati ve Not Available [facility] [address] [place], [address], 03/29/2023 14:08:41 03/29/20 23 03/29/2023 urina lysis , dipst ick Specific [place] 1.015 Not Available [facility] [address] [place], [address], 03/29/2023 14:08:41 03/29/20 23 03/29/2023 urina lysis , dipst ick Ketone Negati ve Not Available [facility] [address] [place], [address], 03/29/2023 14:08:41 03/29/20 23 03/29/2023 urina lysis , dipst ick Bilirubin Negati ve Not Available [facility] [address] [place], [address], 03/29/2023 14:08:41 03/29/20 23 03/29/2023 urina lysis , dipst ick Glucose Negati ve Not Available [facility] [address] [place], [address], 03/29/2023 14:08:41 03/29/20 23 03/29/2023 urina lysis , dipst ick Appearance Clear Not Available [facility] [address] [place], [address], 03/29/2023 14:08:41 03/29/20 23 03/29/2023 urina lysis , dipst ick Color Yellow Not Available [facility] [address] [place], [address], 03/29/2023 14:08:41 01/21/20 23 US, retro perit oneum , compl ete No observ ation record ed. [address] , [place], [address], 02/01/2023 13:22:09 Result Notes None recorded. Problems Name Problem SNOMED Code Status Onset Date Resolution Date Notes Provider Name and Address Organization Details Recorded Time Irritable bowel syndrome 04657086 Active 023 [facility] 14:37:08 Problem Notes None recorded. Medical Equipment None Reported. Allergies Allergen ID Allergen Name Allergen Category Reaction Reaction Severity Criticality Documentation Date Start Date Code Code System Note Provider Name and Address Organization Details Recorded Time 124623 Product containin g penicilli n (product) medicatio n Not available Not available Not available 01/20/2023 07924 8001 SNOMED Gayle Walters null, [place] - [facility] 3 14:41:33 892828 Levaquin medicatio n Not available Not available Not available 01/20/2023 74728 2 RxNorm Gayle Walters [place], [place] - [facility] 3 14:41:40 508216 simvastat in medicatio n Not available Not available Not available 01/20/2023 40098 RxNorm Gayle Selena null, [place] - [facility] 3 14:41:48 393231 loratadin e medicatio n Not available Not available Not available 01/20/2023 83981 RxNorm Gayle Walters null, [place] - [facility] 3 14:42:04 121207 oxycodone medicatio n Not available Not available Not available 01/20/2023 7804 RxNorm Gayle Walters [place], [place] - [facility] 3 14:42:31 509695 azithromy kaci medicatio n Not available Not available Not available 01/20/2023 95024 RxNorm Gayle Walters null, [place] - [facility] 3 14:42:44 Medications Name Sig Start Date Stop Date Status Note LastModified by Organization Details LastModified Time clobetasol 0.05 % topical ointment APPLY A THIN LAYER TO THE AFFECTED AREA(S) BY TOPICAL ROUTE TWO (2) TIMES PER DAY active Not Available Not Available No t Available Premarin 0.625 mg/gram vaginal cream INSERT 0.5G INTRAVAGINAL LY NIGHTLY FOR THE FIRST MONTH, AND THEN GO TO TWICE WEEKLY. active Not Available Not Available No t Available Vitamin C active Not Available Not Medina ilable Not Available calcium active Not Available Not Avail able Not Available Senokot active Not Available Not Avail able Not Available Tylenol 500mg active Not Available Not Avail able Not Available Miralax active Not Available Not Avail able Not Available Vitals Date Recorded Body weight Body mass index (BMI) Body height Heart rate Respiratory rate Oxygen saturation Oxygen saturation in Arterial blood by Pulse oximetry Systolic blood pressure Diastolic blood pressure Provider Name and Address Organization Details Last Updated DateTime 3 40451.0 8 g 23.7 kg/m2 167.64 cm 64 /min 14 /min 98 % 98 % 140 mm[Hg] 72 mm[Hg] Gayle Walters [place] - [facility] 3 14:34:16 Date Recorded Body height Heart rate Oxygen saturation Oxygen saturation in Arterial blood by Pulse oximetry Respiratory rate Systolic blood pressure Diastolic blood pressure Provider Name and Address Organization Details Last Updated DateTime 3 167.64 cm 66 /min 98 % 98 % 14 /min 116 mm[Hg] 70 mm[Hg] Gayle Walters [facility] [place] [facility] 3 13:13:30 Date Recorded Body height Body mass index (BMI) Body weight Body temperature Heart rate Oxygen saturation Oxygen saturation in Arterial blood by Pulse oximetry Respiratory rate Systolic blood pressure Diastolic blood pressure Provider Name and Address Organization Details Last Updated DateTime 3 167.64 cm 23.2 kg/m2 64044.3 g 97.8 [degF] 62 /min 97 % 97 % 18 /min 146 mm[Hg] 70 mm[Hg] Nita Nath [facility] [place] [facility] 3 14:07:27 Social History Question Answer Notes LastModified by Organizat ion Details LastModified Time Tobacco Smoking Status Never Smoker Gayle bates [facility] [place] [facility] 01/20/2023 14:31:52 Are You Blind Or Do You Have Difficulty Seeing? No [email or web address] Information not available 01/20/2023 Are You Deaf Or Do You Have Serious Difficulty Hearing? No [email or web address] Information not available 01/20/2023 What Is The Highest Grade Or Level Of School You Have Completed Or The Highest Degree You Have Received? [id number] Information not available 03/29/2023 What Was The Date Of Your Most Recent Tobacco Screening? 03/29/2023 [email or web address] Information not available 03/29/2023 How Many Children Do You Have? 0 Information not available 01/20/2023 What Is Your Relationship Status? [email or web address] Information not available 01/20/2023 Are You Sexually Active? No [email or web address] Information not available 01/20/2023 Has Tobacco Cessation Counseling Been Provided? No [email or web address] Information not available 03/29/2023 Do You Have Difficulty Walking Or Climbing Stairs? No [email or web address] Information not available 01/20/2023 Do You Want To Talk About Contraception Or Prevention During Your Visit Today? No - I Do Not Want To Talk About Contraception Today Because I Am Here For Something Else [email or web address] Information not available 03/29/2023 Do You Have Any Future Plans To Get ? No, I Don't Want To Become [email or web address] Information not available 03/29/2023 Sex: Unknown Functional Status Question Answer Note LastModified by Organizat ion Details LastModified Time Do you use any illicit or recreational drugs? No [email or web address] Information not available 03/29/2023 Do you or have you ever used any other forms of tobacco or nicotine? No [email or web address] Information not available 03/29/2023 Are you currently employed? No [email or web address] Information not available 03/29/2023 Do you have transportation difficulties? No [email or web address] Information not available 03/29/2023 What is your status? Not [email or web address] Information no t available 03/29/2023 Are you able to walk? YESWOREST [email or web address] Information not available 01/20/2023 Do you have difficulty doing errands alone? No [email or web address] Information not available 01/20/2023 Are you able to care for yourself? Yes [email or web address] Information n ot available 01/20/2023 Do you have difficulty dressing or bathing? No [email or web address] Information not available 01/20/2023 Mental Status Question Answer Note LastModified by Organization D etails LastModified Time Do you have difficulty concentrating, remembering or making decisions? No [email or web address] Information no t available 01/20/2023 Family History Nothing Reported. Medical History No medical history recorded. Gynecological History Statement/Question Response Menses Monthly N Obstetrics History GPAL:G 0 P 0 0 0 0 Past Encounters Encounter ID Performer Location Encounter Start Date Encounter Closed Date Diagnosis/Indication Diagnosis SNOMED-CT Code Diagnosis ICD10 Code Diagnosis Note [id number] Tati Nuñez APRN [facility] [address] [place] [address] 01/20/2023 14:02:05 01/20/2023 15:13:24 Sensation as if urinary bladder still full 102138559 R39.14 Suprapubic pain 37825000 6 R10.30 Abnormal urine 872758427 R82.90 Irritable bowel syndrome characterized by constipation 261155892 K58.1 [id number] [facility] [address] [place] [address] 02/01/2023 13:00:45 02/01/2023 13:43:00 Sensation as if urinary bladder still full 269867493 R39.14 Irritable bowel syndrome characterized by constipation 146833676 K58.1 Atrophic vaginitis 13159 000 N95.2 Urethral caruncle 643757 3 N36.2 -premarin cream Pruritus of vagina 44480 003 L29.3 [id number] [facility] [address] [place] [address] 03/29/2023 13:38:51 03/29/2023 14:31:56 Irritable bowel syndrome characterized by constipation 173578148 K58.1 Atrophic vaginitis 90528 000 N95.2 -rx premarin cream- hasnt used yet but doing ok symptomati verna. Urethral caruncle 613904 3 N36.2 -premarin cream Pruritus of vagina 88577 003 L29.3 -continue clobetasol Health Concerns Section Related Observation LastModified by Organization Detai ls LastModified Time None Recorded Concern Status LastModified by Organization Details LastModified Time None Recorded Advance Directives Directive None Recorded Payers Insurance Date Sequence Insurance Name Policy Number Policy Benito Covered Member ID Benito Member ID Guarantor Name 04/20/2023 1 [employer] (MEDICARE REPLACEMENT/ ADVANTAGE - PPO) Yadira Garcia [id number] Yadira Garcia Notes Date Note Type Note Provider Name and Address Organization Details Recorded Time 01/20/2023 text/html Lower Urinary Tr act Symptoms (LUTS)Reported bypatient.Context:his tory of kidney stones (was able to pass it on her own.); number of pregnancies: 0 Associated Symptoms:no abdominal pain; no groin pain; no flank pain; no chills; no fever; no diarrhea; no nausea; no vomiting; no temperaure; good force of stream; no straining; no post void dribbling; no hesitancy; no urgency; no frequency; no dysuria; no incontinence; no urine odor; no gross hematuria;low back pain(intermittent, flares occur along with IBS, typically 1-2 times a week, states that it is from her suprapubic area straight through to her rectum.);constipation (due to IBS.);empties poorly(at times.);nocturia 4 times a night pcp-[facility] [place]. [facility].states she has issues with emptying bladder in the am sometimes.states she is using clobetasol ointment for vaginal discomfort. had labs done recently and was advised they were normal. per referral here for microscopic hematuria,urinary freq,hx of kidney stones.pt reports issues started [address] is about an hour. Tati Nuñez, [employer] [address], [place], [address], [place] - [facility] 01/20/2023 15:12:52 02/01/2023 text/html Lower Urinary Tr act Symptoms (LUTS)Reported bypatient.Context:his tory of kidney stones (was able to pass it on her own.); number of pregnancies: 0 Associated Symptoms:no abdominal pain; no groin pain; no flank pain; no chills; no fever; no diarrhea; no nausea; no vomiting; no temperaure; good force of stream; no straining; no post void dribbling; no hesitancy; no urgency; no frequency; no dysuria; no incontinence; no urine odor; no gross hematuria;low back pain(intermittent, flares occur along with IBS, typically 1-2 times a week, states that it is from her suprapubic area straight through to her rectum.);constipation (due to IBS.);empties poorly(at times.);nocturia 2 times a nightNotes:-01/20/23- UA and UCx negative. -01/20/23- US retroperitoneum complete- per report- normal kidneys without stone, mass, or hydronephrosis. bladder shows a prevoid of 160ml and PVR 8ml. pcp-[place]. [facility].states she has issues with emptying bladder in the am sometimes.states she is using clobetasol ointment for vaginal discomfort. had labs done recently and was advised they were normal. per referral here for microscopic hematuria,urinary freq,hx of kidney stones.pt reports issues started [address] is about an hour. -02/01/23comes to [facility]. got her US. symptoms are the same. using clobetasol and then also vaseline 1-2x a day. Tati Nuñez, [employer] CLERK [address], [place], [address], [place] - [facility] 02/01/2023 13:50:12 03/29/2023 text/html Lower Urinary Tr act Symptoms (LUTS)Reported bypatient.Context:his tory of kidney stones (was able to pass it on her own.); number of pregnancies: 0 Associated Symptoms:no abdominal pain; no groin pain; no flank pain; no low back pain; no chills; no fever; no constipation; no diarrhea; no nausea; no vomiting; no temperaure; good force of stream; no straining; no post void dribbling; no hesitancy; empties well; no urgency; no frequency; no dysuria; no incontinence; no nocturia; no urine odor; no gross hematuriaNotes:- 3- UA and UCx negative. -01/20/23- US retroperitoneum complete- per report- normal kidneys without stone, mass, or hydronephrosis. bladder shows a prevoid of 160ml and PVR 8ml. pcp-[place]. alfonso [facility].states she has issues with emptying bladder in the am sometimes. per referral here for microscopic hematuria,urinary freq,hx of kidney stones.pt reports issues started [address] is about an hour. 03/29/23comes to [facility]. got her US. last appt had severe vaginal atrophy and itching. we advised using vaseline and rx clobetasol. she used both of these and they helped a lot. she has not filled the premarin.reports complete resolution of symptoms and no complaints. using clobetasol and then also vaseline when needed Tati Mittie, [employer] CLERK [address], [place], [address], [place] - [facility] 03/29/2023 14:31:39 OBGyn Episode No OBEpisode recorded.
--- NOTE | 2025-04-04 10:37 | CA_ITS ---
APPROVED REPORT EXAM: Comprehensive 2D, Doppler, and color-flow Echocardiogram Dry Roller: Kristyn Hui RDCS Ht: 5 ft 6 in Wt: 140lbs BSA: 1.72 BP: 115/60 mmHg Indications: HTN M-Mode Dimensions RVDd 1.75 cm (0.9-2.6) LA Diam 3.13 cm (1.9-4.0) LVDd 5.17 cm (3.5-5.7) LVDs 3.59 cm (3.5-5.7) IVSd 0.67 cm (0.6-1.1) PWd 0.50 cm (0.6-1.1) EF (Teich) 57.70% FS 30.60% EDV (Teich) 127.80 mL TAPSE 1.11 (<1.7) ESV (Teich) 54.10 mL LV Diastology E Decel Time 347 (160-240 msec) E/A Ratio 0.8 Mitral Valve MV E Max Livan. 73.0 (40-130 cm/s) MV A Velocity 93.0 (40-130 cm/s) E/A Ratio 0.79 MV Mean Gr. 1.50 (<2mmHg) MV PHT 102.0 ms Tricuspid Valve TR P. Velocity 257.00 cm/s RAP Estimate 10.00 mmHg RVSP 36.50 mmHg Left Ventricle The left ventricle is normal size. The left ventricular systolic function is normal. The left ventricular ejection fraction is within the normal range. There is increased LV wall thickness. There is normal LV segmental wall motion. Transmitral Doppler flow pattern suggests impaired LV relaxation. LVEF is 55%. Right Ventricle The right ventricle is normal size. The right ventricular systolic function is normal. Atria The left atrium size is normal. The right atrium size is normal. There is no Doppler evidence of interatrial shunt. Aortic Valve Aortic valve is mildly thickened. There is no aortic valvular stenosis. No aortic regurgitation is present. Mitral Valve The mitral valve is normal in structure. No evidence of mitral valve stenosis. Mild mitral regurgitation. Tricuspid Valve Tricuspid valve is grossly normal in structure and function. Mild tricuspid regurgitation. RVSP is 20-25 mmHg. Pulmonic Valve The pulmonary valve is normal in structure. Trace pulmonic regurgitation. Great Vessels The aortic root is normal in size. IVC is normal in size and collapses >50% with inspiration. Pericardium There is no pericardial effusion. Other Information Study Quality: Fair Conclusion Normal biventricular systolic function. Mild MR, mild TR. Electronically signed by : Beatrice Freedman MD 04/08/2025 11:04:11
--- NOTE | 2025-04-04 10:37 | CA_ITS ---
FINAL REPORT CLINICAL HISTORY: Dizziness, HTN FINDINGS: The peak systolic velocity of the right common carotid artery is 112 cm/s. The peak systolic velocity of the right internal carotid artery is 97 cm/s and end diastolic velocity 27 cm/s. The ICA/CCA ratio is 1.3. No significant plaque is present. The right external carotid artery is patent. The right vertebral artery is patent with antegrade flow. The peak systolic velocity of the left common carotid artery is 174 cm/s. The peak systolic velocity of the left internal carotid artery is 139 cm/s and end diastolic velocity 36 cm/s. The ICA/CCA ratio is 1.4. No significant plaque is present. The left external carotid artery is patent.The left vertebral artery is patent with antegrade flow. IMPRESSION: Less than 50% bilateral carotid stenoses. Bilateral patent vertebral arteries with antegrade flow. If indicated, CTA or MRA could further evaluate. Reviewed, Interpreted and Dictated by Kati Henry MD Transcribed by Elizabeth Rosado Authenticated and [facility]
[2025-04-04 11:40] LABS: Basophils % 0.7 % (0.1-2.0); Hematocrit 36.1 % (37.0-47.0); Hemoglobin 11.5 g/dL (12.2-16.2); Immature Granulocytes # 0.01 10^3uL; Immature Granulocytes % 0.3 %; Lymphocytes # 1.1 K/mm3 (0.7-4.5); Mean Corpuscular HGB Conc 31.9 g/dL (31.8-35.4); Mean Platelet Volume 10.4 fl (7.4-10.4); Monocytes # 0.2 K/mm3 (0.1-1.0); Monocytes % 6.6 % (1.7-9.3); Neutrophils # 1.5 K/mm3 (1.8-7.8); Neutrophils % 53.4 % (37.0-80.0); Nucleated Red Blood Cells # 0 10^3/uL; Nucleated Red Blood Cells % 0 %; Platelet Count 181 K/mm3 (142-424); Red Cell Distribution Width 17.1 % (11.5-17.5); Red Cell Distribution Width-SD 55.8 fL; White Blood Count 2.9 K/mm3 (4.8-10.8)
[2025-04-04 12:39] LABS: Alanine Aminotransferase 14 U/L (12-78); Albumin Level 4.3 g/dl (3.5-5.0); Albumin/Globulin Ratio 1.4 (1.1-1.8); Alkaline Phosphatase 56 U/L (38-126); Anion Gap 12.4 mEq/L (5-15); Aspartate Amino Transferase 25 U/L (14-36); Bilirubin,Total 0.8 mg/dl (0.2-1.3); Blood Urea Nitrogen 14 mg/dl (7-17); Calcium 9.8 mg/dl (8.4-10.2); Carbon Dioxide 30 mmol/L (22.0-30.0); Chloride 100 mmol/L (98-107); Chol/HDL Ratio 3.9 (1-3.5); Cholesterol 186 mg/dl (140-200); Estimated Glomerular Filt Rate 80 ml/min (>60); GFR (African American) 96 ML/MIN (>60); Globulin 3.1 g/dL (1.3-3.2); Glucose 99 mg/dl (74-100); HDL Cholesterol 48 mg/dl (40-60); Potassium 4.4 mmoL/L (3.5-5.1); Sodium 138 mmol/L (136-145); Total Protein,Serum 7.4 g/dl (6.3-8.2); Triglycerides 87 mg/dl (30-150); VLDL Cholesterol 17 mg/dL (0-40)
[2025-04-04 12:50] LABS: Direct LDL Cholesterol 101.26 mg/dL (100-129)
[2025-04-04 13:28] LABS: Vitamin B12 956 pg/mL (239-931)
== END 2025-04-04 23:59 | disposition home or self-care (01) ==
LOC: RT 10:21
PROVIDERS: PCP Nurse Practitioner Family; Visit Provider Nurse Practitioner Family
DX: I08.1 Rheumatic disorders of both mitral and tricuspid valves (principal); I65.23 Occlusion and stenosis of bilateral carotid arteries; I10 Essential (primary) hypertension
CPT/HCPCS: 36415; 80053; 80061; 82607; 85025; 93306; 93880

== ENCOUNTER 2025-08-26 11:51 | Outpatient (CLI) | payer MEDICARE, SELFPAY ==
[2025-08-26 12:41] LABS: Hematocrit 36.9 % (37.0-47.0); Hemoglobin 11.8 g/dL (12.2-16.2); Immature Granulocytes % 0.4 %; Mean Corpuscular HGB Conc 32.0 g/dL (31.8-35.4); Mean Corpuscular Hemoglobin 28.6 pg (27.0-31.2); Mean Corpuscular Volume 89.6 fl (81-99); Nucleated Red Blood Cells % 0 %; Platelet Count 227 K/mm3 (142-424); Red Blood Count 4.12 M/mm3 (4.20-5.40); Red Cell Distribution Width-SD 56.7 fL; White Blood Count 2.8 K/mm3 (4.8-10.8)
== END 2025-08-26 23:59 | disposition home or self-care (01) ==
LOC: LAB 11:51
PROVIDERS: PCP Nurse Practitioner Family; Visit Provider Internal Medicine Medical Oncology
DX: D72.819 Decreased white blood cell count, unspecified (principal)
CPT/HCPCS: 36415; 85025